=== PATIENT | female | born 1945 | race Caucasian/White ===

== ENCOUNTER 2017-03-19 06:54 | Day surgery (SDC) | payer MEDICARE, OTHER ==
[~2017-03-19 06:54] MED LIST: RINGER'S SOLUTION,LACTATED 1,000 ML IV PRN; ceFAZolin SODIUM 1 GM VIAL IV PRN
[2017-03-19] MEDS ORDERED: RINGER'S SOLUTION,LACTATED 1,000 ML IV ONE (07:40)
[2017-03-19] MEDS ORDERED: RINGER'S SOLUTION,LACTATED 900 ML IV ONE (07:45)
[2017-03-19] MEDS ORDERED: BUPIVACAINE HCL 50 ML VIAL IJ ONE ×2 (08:00)
--- NOTE | 2017-03-19 08:31 | OR ---
Operative Report - Dictated Report Narrative: Date: 03/19/2017 Physician: Clinton Alvarez M.D. Mixing Machine Attendant: None Preoperative diagnosis: Left Trigger thumb Postoperative diagnosis: Left Trigger thumb Procedure: Left thumb A1 дмитрий release Anesthesia: MAC Plus local Complications: None Estimated blood loss: Minimal Tourniquet time: 9 Minutes at 250 mmHg Specimens: None Retained implants: None Drains: None Indications: Jessica Is a 71 year-old female who has been followed in my clinic with complaints of triggering of the left thumb. Physical exam as demonstrated triggering of the finger. Conservative measures have failed including but not limited to passage of time, activity modification, and medications. The risks, benefits, and alternatives were discussed in clinic. The risks being bleeding, infection, nerve, tendon, blood vessel injury, persistent pain, wound competitions, need for additional procedures, and persistent symptoms. Consent was obtained in the clinic. Procedure: After marking the correct extremity in the preoperative holding area, a timeout was performed in the operating room. IV antibiotics consisting of 2 g of Ancef were administered prior to the procedure. A well-padded nonsterile tourniquet was applied to the operative upper arm. The operative extremity was then prepped and draped in the usual sterile fashion. The arm was exsanguinated and the tourniquet was inflated to 250 mmHg. 0.5% Marcaine without epinephrine was infused into the projected incision site at the palmar flexion crease over the metacarpal phalangeal joint in line with the digit. Using loupe magnification, a transverse incision in the appropriate palmar flexion crease in line with the digit. Blunt dissection was carried down through the subcutaneous tissues using bipolar cautery for hemostasis. Care was taken to protect the digital nerves. Staying midline along the flexor tendon, the A1 дмитрий was identified. A marilou was made in the proximal edge of the A1 дмитрий with a 15 blade scalpel and tenotomy scissors were utilized in order to completely transect the A1 дмитрий. Care was to stay midline and avoid transection of the A2 дмитрий. Soft tissues overlying the flexor tendon proximal to the A1 дмитрий were also released ensuring that there were no other compressive structures contributing to the triggering. The finger was placed through range of motion and demonstrated no additional catching. The tendon was visualized and mobilized out of the wound, and did not demonstrate any gross pathology or masses that required debridement. The tendon was noted to be intact. Once it was felt that we had adequately decompressed the flexor tendon as it passed under the A1 дмитрий, the tourniquet was removed. Hemostasis was obtained with pressure and bipolar cautery. There was good return of color and capillary refill to the digit. Additional half percent Marcaine without epinephrine was infused into the skin edges. The wound was thoroughly irrigated. The skin was closed with interrupted 4-0 nylon. Sterile dressings consisting of Xeroform, 4 x 4, and Jade were applied. All sponge, needle, blade, and instrument counts were correct prior to closing the wounds. The patient was awoken and transferred to the post-anesthesia care unit in stable condition.
[2017-03-19 09:20] VITALS: BP 128/63
== END 2017-03-19 06:55 | disposition home or self-care (01) ==
LOC: AMB 06:54
PROVIDERS: ATTEND Orthopaedic Surgery
PROC: 0LN80ZZ Release Left Hand Tendon, Open Approach (ICD-10-PCS; principal; 2017-03-19 08:00)
DX: M65.312 Trigger thumb, left thumb (principal); I10 Essential (primary) hypertension; D64.9 Anemia, unspecified; M79.7 Fibromyalgia; K58.9 Irritable bowel syndrome, unspecified; M17.0 Bilateral primary osteoarthritis of knee; F33.8 Other recurrent depressive disorders; E66.01 Morbid (severe) obesity due to excess calories; Z68.41 Body mass index [BMI] 40.0-44.9, adult; Z87.891 Personal history of nicotine dependence